=== PATIENT | female | born 1965 | race Caucasian/White ===

== ENCOUNTER 2018-02-07 11:33 | Emergency (ER) | payer OTHER ==
[~2018-02-07] VITALS: Ht 175.3 cm; Wt 93.0 kg
[~2018-02-07 11:33] MED LIST: ONDA4ODT; OXYC10TA19 PO
[2018-02-07 12:02] LABS: BASOPHILS ABSOLUTE AUTO 0.02 K/mm3 (0.00-0.23); BASOPHILS PERCENT AUTO 0 % (0-2); EOSINOPHILS ABSOLUTE AUTO 0.14 K/mm3 (0.00-0.68); EOSINOPHILS PERCENT AUTO 3 % (0-6); Hemoglobin 13.7 g/dL (11.5-16.0); IMMATURE GRAN ABSOLUTE AUTO 0.01 K/mm3 (0.00-0.10); IMMATURE GRAN PERCENT AUTO 0 % (0-1); LYMPHOCYTES ABSOLUTE AUTO 1.67 K/mm3 (0.84-5.20); LYMPHOCYTES PERCENT AUTO 36 % (21-46); MONOCYTES ABSOLUTE AUTO 0.37 K/mm3 (0.16-1.47); MONOCYTES PERCENT AUTO 8 % (4-13); Mean Corpuscular HGB 31.9 pg (26.0-34.0); Mean Corpuscular HGB Conc 33.4 g/dL (31.5-36.5); Mean Corpuscular Volume 96 fL (80-100); Mean Platelet Volume 9.4 fL (9.1-12.4); NEUTROPHILS ABSOLUTE AUTO 2.38 K/mm3 (1.96-9.15); NEUTROPHILS PERCENT AUTO 52 % (41-73); Platelet Count 248 K/mm3 (150-400); Red Blood Cell Count 4.29 M/mm3 (3.80-5.20); White Blood Cell Count 4.59 K/mm3 (4.00-11.30)
[2018-02-07] MEDS ORDERED: Cyclobenzaprine5 MG PO (12:10)
[2018-02-07] MEDS ORDERED: NABU750 PO (12:10)
[2018-02-07] MEDS ORDERED: OTEZLA30 MG PO (12:10)
[2018-02-07] MEDS ORDERED: FOLI1 PO (12:10)
[2018-02-07] MEDS ORDERED: Zantac150 MG PO (12:10)
[2018-02-07] MEDS ORDERED: COSENTYX P150 MG/11 SQ (12:10)
[2018-02-07] MEDS ORDERED: ARIPIPRAZOLE5 MG PO (12:10)
[2018-02-07] MEDS ORDERED: Bupropion Xl150 MG PO (12:11)
[2018-02-07 12:12] LABS: Source, Urine Clean Catch
[2018-02-07 12:16] LABS: Bilirubin, Urine Neg (Neg); Blood, Urine Neg (Neg); Glucose Qualitative, Urine Neg (Neg); Ketones, Urine 1+ (Neg); Leukocyte Esterase, Urine Neg (Neg); Nitrite, Urine Neg (Neg); Protein, Urine Neg (Neg); Specific Gravity, Urine 1.015 (1.003-1.022); Urobilinogen, Urine NORM (Normal)
[2018-02-07 12:24] LABS: Appearance, Urine Clear (Clear); Color, Urine Yellow (P-Yellow)
[2018-02-07 12:34] LABS: Alanine Aminotransfer (ALT/SGP 250 U/L (12-78); Albumin, Blood 3.6 g/dL (3.4-5.0); Albumin/Globulin Ratio 0.8 (0.8-1.8); Alk Phos 171 U/L (50-136); Anion Gap 6 mmol/L (6-16); Aspartate Aminotrans (AST/SGOT 176 U/L (12-37); Bilirubin, Total 0.6 mg/dL (0.1-1.0); Blood Urea Nitrogen 15 mg/dL (8-24); Bun/Creatinine Ratio 18.5 (12.0-20.0); CO2, Blood 27 mmol/L (21-32); Calcium, Blood 8.8 mg/dL (8.5-10.1); Chloride, Blood 108 mmol/L (98-108); Creatinine, Blood 0.81 mg/dL (0.40-1.00); Globulin, Blood 4.5 g/dL (2.2-4.0); Glomerular Filtration Rate >60 (60-); Glucose, Blood 82 mg/dL (70-99); Potassium, Blood 3.9 mmol/L (3.5-5.5); Sodium, Blood 141 mmol/L (136-145); Total Protein, Blood 8.1 g/dL (6.4-8.2)
== END 2018-02-07 13:36 | disposition home or self-care (01) ==
LOC: ER 11:33
PROVIDERS: Physician Assistant
DX: R79.89 Other specified abnormal findings of blood chemistry (principal); Z88.0 Allergy status to penicillin; Z88.2 Allergy status to sulfonamides; Z79.899 Other long term (current) drug therapy; Z87.891 Personal history of nicotine dependence
CPT/HCPCS: 36415; 80053; 81003; 83690; 85025; 99283

== ENCOUNTER 2018-08-06 02:28 | Observation (INO) | payer OTHER ==
[~2018-08-06] VITALS: Ht 175.3 cm; Wt 96.0 kg
[~2018-08-06 02:28] MED LIST changes: +ARIPIPRAZOLE5 MG PO; +Bupropion Xl150 MG PO; +COSENTYX P150 MG/11 SQ; +Cyclobenzaprine5 MG PO; +FOLI1 PO; +NABU750 PO; +OTEZLA30 MG PO; +Zantac150 MG PO
[2018-08-06 03:26] LABS: BASOPHILS ABSOLUTE AUTO 0.02 K/mm3 (0.00-0.23); BASOPHILS PERCENT AUTO 0 % (0-2); EOSINOPHILS ABSOLUTE AUTO 0.01 K/mm3 (0.00-0.68); EOSINOPHILS PERCENT AUTO 0 % (0-6); Hematocrit 44.4 % (33.0-51.0); Hemoglobin 14.6 g/dL (11.5-16.0); IMMATURE GRAN ABSOLUTE AUTO 0.03 K/mm3 (0.00-0.10); IMMATURE GRAN PERCENT AUTO 0 % (0-1); LYMPHOCYTES ABSOLUTE AUTO 1.21 K/mm3 (0.84-5.20); LYMPHOCYTES PERCENT AUTO 14 % (21-46); MONOCYTES ABSOLUTE AUTO 0.33 K/mm3 (0.16-1.47); MONOCYTES PERCENT AUTO 4 % (4-13); Mean Corpuscular HGB 31.3 pg (26.0-34.0); Mean Corpuscular HGB Conc 32.9 g/dL (31.5-36.5); Mean Corpuscular Volume 95 fL (80-100); Mean Platelet Volume 9.9 fL (9.1-12.4); NEUTROPHILS ABSOLUTE AUTO 7.17 K/mm3 (1.96-9.15); NEUTROPHILS PERCENT AUTO 82 % (41-73); Platelet Count 247 K/mm3 (150-400); RDW Standard Deviation 45.5 fL (35.1-46.3); Red Blood Cell Count 4.67 M/mm3 (3.80-5.20); White Blood Cell Count 8.77 K/mm3 (4.00-11.30)
[2018-08-06 04:05] LABS: Source, Urine Clean Catch
[2018-08-06 04:07] LABS: Bilirubin, Urine Neg (Neg); Blood, Urine Neg (Neg); Glucose Qualitative, Urine Neg (Neg); Ketones, Urine 3+ (Neg); Leukocyte Esterase, Urine 1+ (Neg); Nitrite, Urine Neg (Neg); Protein, Urine 1+ (Neg); Specific Gravity, Urine 1.015 (1.003-1.022); Urobilinogen, Urine NORM (Normal)
[2018-08-06 04:15] LABS: Appearance, Urine Cloudy (Clear); Color, Urine Yellow (P-Yellow)
[2018-08-06 04:16] LABS: Amorphous Heavy (0-Heavy); Bacteria Mod /hpf; Red Blood Cells, Urine 0-2 /hpf (0-2); Squamous Epithelial Cells Rare /hpf (Few); White Blood Cells, Urine 0-2 /hpf (0-5)
[2018-08-06 04:25] LABS: Alanine Aminotransfer (ALT/SGP 124 U/L (12-78); Albumin, Blood 3.3 g/dL (3.4-5.0); Albumin/Globulin Ratio 0.8 (0.8-1.8); Alk Phos 120 U/L (50-136); Anion Gap 5 mmol/L (6-16); Aspartate Aminotrans (AST/SGOT 280 U/L (12-37); Blood Urea Nitrogen 16 mg/dL (8-24); Bun/Creatinine Ratio 19.7 (12.0-20.0); CO2, Blood 24 mmol/L (21-32); Calcium, Blood 8.5 mg/dL (8.5-10.1); Chloride, Blood 110 mmol/L (98-108); Creatinine, Blood 0.81 mg/dL (0.40-1.00); Globulin, Blood 4.1 g/dL (2.2-4.0); Glomerular Filtration Rate >60 (60-); Glucose, Blood 118 mg/dL (70-99); Potassium, Blood 4.9 mmol/L (3.5-5.5); Sodium, Blood 139 mmol/L (136-145); Total Protein, Blood 7.4 g/dL (6.4-8.2)
--- NOTE | 2018-08-06 06:00 | NUR ---
RECEIVED HAND OFF FROM ER NURSE USING SBAR. TRANSPORTED TO ROOM VIA STRETCHER. TRANSFERED SELF TO BED WITHOUT ASSISTANCE. AAO X3, BAZAN FOLLOWS ALL COMMANDS. ORIENTED TO ROOM, CALL SYSTEM, AND POC, VERBALIZES UNDERSTANDING. DENIES PAIN AT THIS TIME, BUT STATES THAT PAIN WAS VERY SEVERE ON ARRIVAL TO ER. CURRENTLY NPO FOR POSS SX TODAY. CONTINENT OF BOWEL AND BLADDER, USES BATHROOM. RIGHT WRIST 20G SL PIV IS PATENT, FLUSHING WITH EASE. NS ATARTED AT 100ML/HR PER MD ORDERS. ADMISSION ASSESSMENT IN PROGRESS. DENIES FURTHER NEEDS AT THIS TIME. SAFETY MEASURES IN PLACE. WILL CONTINUE TO MONITOR.
--- NOTE | 2018-08-06 08:11 | NUR ---
PT NPO FOR SCHED FELIPE DELTA TODAY BOOK GIVEN RE SURG AWAITING DR BARAKAT ORAL CARE PROVIDED
--- NOTE | 2018-08-06 15:15 | NUR ---
pt transported to day surg via [facility]
--- NOTE | 2018-08-06 15:45 | NUR ---
History, Chart, Medications and Allergies reviewed before start of procedure. Lungs clear T/O to Auscultation. Patient confirms NPO status and agrees with scheduled surgery. Pre-Op teaching done. Pt verbalizes understanding.
--- NOTE | 2018-08-06 17:38 | NUR ---
RETURNING PATIENT BACK TO ROOM DUE TO BEING BUMP BY ANOTHER SURGERY. REPORTED OFF TO FLOOR NURSE, JUAN WHITE.
--- NOTE | 2018-08-06 17:59 | NUR ---
pt back to room 230 from day surg no surg at this time still npo
--- NOTE | 2018-08-06 20:29 | NUR ---
"TALENT DIRECTOR | HANDOFF TO OR. PATIENT INTO PACU FOR PRE-OP. ALL INTERVENTIONS COMPLETED EARLIER TODAY BY DAY SURGERY STAFF. REVIEWED CHART AND INTERVENTIONS. VSS. A/O. BOTH DOCTORS HAVE SEEN PATIENT. TAPE OVER JEWELRY. SEE JEWELRY REFUSAL FORM IN CHART. IV TENDER, ANESTHESIA OKAY WITH CURRENT IV. HANDOFF TO AVANI Chavis RN AND DR. KIRK."
--- NOTE | 2018-08-06 21:08 | NUR ---
08/06/[id number] Eloina Butcher PT ON SCHEDULED ANTIBIOTIC
--- NOTE | 2018-08-06 22:10 | NUR ---
PT ARRIVED TO ICU 15 FOR POST OP RECOVERY AT 2157. PLACED ON 2L O2 VIA NC DUE TO SPO2 DROPPING TO 88% AT TIMES. PT IS AWAKE AND ANSWERING QUESTIONS APPROPRIATELY. DENIES PAIN AND NAUSEA. HAS STERISTIPS TO UMBILICUS, R ABD, AND MID UPPER ABD THAT ARE C/D/I. NO SIGN OF DISTRESS.
--- NOTE | 2018-08-06 22:45 | NUR ---
TRANSPORTED TO ROOM 230 VIA STRETCHER, TRANSFERED TO BED WITH FULL STAFF ASSISTANCE, TOLERATED WELL. DROWSY, DENIES PAIN AT THIS TIME. LAP SITES X4 TO ABD WITH STERI STRIPS THAT ARE C/D/I. CONTINENT OF BOWEL AND BLADDER, USES BATHROOM. SCD'S TO BLE. DENIES FURTHER NEEDS AT THIS TIME. SAFETY MEASURES IN PLACE. WILL CONTINUE TO MONOTOR.
--- NOTE | 2018-08-07 06:38 | NUR ---
SHIFT SUMMARY HAS AMBULATED TO BATHROOM X2 THIS SHIFT WITH ADEQUATE URINE PRODUCTION NOTED. PAIN HAD BEEN MILD TO MODERATE, REFUSES ALL OFFERS OF PAIN MEDS. LAP SITE DRESSINGS ARE C/D/I. GOOD BOWEL SOUNDS NOTED, REGULAR DIET ORDERED FOR BREAKFAST PER HER REQUEST. SAFETY MEASURES IN PLACE. WILL GIVE HAND OFF TO ONCOMING SHIFT USING SBAR.
--- NOTE | 2018-08-07 14:45 | NUR ---
DISCHARGE PT DISCHARGED HOME AT THIS TIME. PT EDUCATED ON AND RECEIVED PRINTED DC INSTRUCTIONS. PT VERB AN UNDERSTANDING. NO NEW RX. IV DC'D. PT LEFT WITH ALL PERSONAL BELONGINGS.
--- NOTE | 2018-08-07 14:52 | NUR ---
Pt. in bed resting she reports doing well and may go home today or gilberto offered some prayers .
== END 2018-08-07 14:35 | disposition home or self-care (01) ==
LOC: ER 02:28 → SURS 02:29 → MEDS 02:29 → SURS 02:30 → ER 05:39 → SURS 05:39 → MEDS 05:39 → SURS 05:39 → MEDS 05:42 → SURS 08-07 14:35
PROVIDERS: Emergency Medicine; ADMIT Surgery
PROC: 0FT44ZZ Resection of Gallbladder, Percutaneous Endoscopic Approach (ICD-10-PCS; principal; 2018-08-07)
PROC: BF13YZZ Fluoroscopy of Gallbladder and Bile Ducts using Other Contrast (ICD-10-PCS; principal; 2018-08-07)
DX: K80.00 Calculus of gallbladder with acute cholecystitis without obstruction (principal); Z88.0 Allergy status to penicillin; Z88.2 Allergy status to sulfonamides; Z87.891 Personal history of nicotine dependence
CPT/HCPCS: 36415; 74300; 76705; 80053; 81001; 83690; 85025; 87086; 88304; 93005; 93010; 96361; 96365; 96367; 96375; 99285-25; C1729; G0378; J0696; J1100; J1170; J1885; J1956; J2405; J2704; J3010; J7030; J7120

== ENCOUNTER → 2018-12-04 | Outpatient (CLI) | payer OTHER | END | disposition home or self-care (01) | LOC: LAB SHORT 14:00 → LAB 14:00 | PROVIDERS: Nurse Practitioner Family | DX: Z01.419 Encounter for gynecological examination (general) (routine) without abnormal findings (principal); Z11.51 Encounter for screening for human papillomavirus (HPV) | CPT/HCPCS: G0145 ==

== ENCOUNTER → 2021-05-29 | Outpatient (CLI) | payer OTHER | END | disposition home or self-care (01) | LOC: PLD 08:50 → LAB SHORT 08:50 | DX: B35.1 Tinea unguium (principal); L60.2 Onychogryphosis | CPT/HCPCS: 88305; 88312 ==

== ENCOUNTER → 2021-06-14 | Outpatient (CLI) | payer OTHER | END | disposition home or self-care (01) | LOC: LAB SHORT 08:15 | DX: R30.9 Painful micturition, unspecified (principal) | CPT/HCPCS: 87077; 87086; 87186 ==

== ENCOUNTER → 2021-12-05 | Outpatient (CLI) | payer OTHER | LOC: LAB SHORT 10:58 → LAB 10:58 | DX: L57.0 Actinic keratosis (principal) | CPT/HCPCS: 88305 ==

== ENCOUNTER 2022-07-23 09:18 | Emergency (ER) | payer OTHER ==
[~2022-07-23] VITALS: Ht 175.3 cm; Wt 88.5 kg
[2022-07-23 11:24] LABS: BASOPHILS ABSOLUTE AUTO 0.01 K/mm3 (0.00-0.23); BASOPHILS PERCENT AUTO 0 % (0-2); EOSINOPHILS ABSOLUTE AUTO 0.01 K/mm3 (0.00-0.68); EOSINOPHILS PERCENT AUTO 0 % (0-6); Hematocrit 38.9 % (33.0-51.0); Hemoglobin 13.4 g/dL (11.5-16.0); IMMATURE GRAN ABSOLUTE AUTO 0.03 K/mm3 (0.00-0.10); IMMATURE GRAN PERCENT AUTO 0 % (0-1); LYMPHOCYTES ABSOLUTE AUTO 0.87 K/mm3 (0.84-5.20); LYMPHOCYTES PERCENT AUTO 10 % (21-46); MONOCYTES ABSOLUTE AUTO 0.24 K/mm3 (0.16-1.47); MONOCYTES PERCENT AUTO 3 % (4-13); Mean Corpuscular HGB 32.2 pg (26.0-34.0); Mean Corpuscular HGB Conc 34.4 g/dL (31.5-36.5); Mean Corpuscular Volume 94 fL (80-100); Mean Platelet Volume 10.3 fL (9.1-12.4); NEUTROPHILS ABSOLUTE AUTO 7.52 K/mm3 (1.96-9.15); NEUTROPHILS PERCENT AUTO 87 % (41-73); Platelet Count 213 K/mm3 (150-400); RDW Coefficient Variation 12.9 % (11.7-14.2); RDW Standard Deviation 44.5 fL (35.1-46.3); Red Blood Cell Count 4.16 M/mm3 (3.80-5.20); White Blood Cell Count 8.68 K/mm3 (4.00-11.30)
[2022-07-23 11:27] LABS: Albumin, Blood 3.5 g/dL (3.4-5.0); Albumin/Globulin Ratio 0.9 (0.8-1.8); Bilirubin, Total 0.4 mg/dL (0.1-1.0); Bun/Creatinine Ratio 31.7 (12.0-20.0); Calcium, Blood 9.4 mg/dL (8.5-10.1); Creatinine, Blood 0.82 mg/dL (0.40-1.00); Potassium, Blood 3.9 mmol/L (3.5-5.5); Total Protein, Blood 7.5 g/dL (6.4-8.2)
[2022-07-23] MEDS ORDERED: HYDR1TAB94 PO (11:36)
[2022-07-23 11:43] VITALS: BP 122/73
== END 2022-07-23 11:49 | disposition home or self-care (01) ==
LOC: ER 09:18
PROVIDERS: Emergency Medicine
DX: N13.2 Hydronephrosis with renal and ureteral calculous obstruction (principal); Z87.891 Personal history of nicotine dependence; Z79.899 Other long term (current) drug therapy
CPT/HCPCS: 74176; 80053; 85025; J1885

== ENCOUNTER → 2022-11-26 | Outpatient (CLI) | payer OTHER ==
[~2022-11-26] MED LIST changes: +HYDR1TAB94 PO
[2022-12-01 11:12] LABS: HPV 16 Negative (Negative); HPV 18 Negative (Negative); HPV OTHER HR TYPES Negative (Negative)
== END ==
LOC: LAB 18:32 → LAB SHORT 18:32
PROVIDERS: Nurse Practitioner Family
DX: Z01.419 Encounter for gynecological examination (general) (routine) without abnormal findings (principal)
CPT/HCPCS: 87624; G0145

== ENCOUNTER → 2024-03-03 | Outpatient (CLI) | payer OTHER ==
[2024-03-10 17:40] LABS: HPV HIGH RISK BY TMA Not Detected; HPV SOURCE Cervical
== END | disposition home or self-care (01) ==
LOC: LAB 18:05 → LAB SHORT 18:05
PROVIDERS: Nurse Practitioner Family
DX: Z01.419 Encounter for gynecological examination (general) (routine) without abnormal findings (principal)
CPT/HCPCS: 87624; G0123